=== PATIENT | male | born 1995 | race Caucasian/White ===

== ENCOUNTER 2024-10-04 08:07 | Outpatient (AMB) | payer MEDICARE, MEDICAID, SELFPAY ==
--- NOTE | 2024-10-04 08:12 | A.OFFVIS_ITS ---
Intake Visit Reasons: F/U after abnormal EEG Allergies No Known Allergies Allergy (Verified 09/29/24 07:49) HPI Comments Details: 28 yo RH man who was born in [facility]. 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 His milestones were delayed: he started talking and walking at age 1. He was schooled through special ed system and now was working in [email or web address]. He started having new symptoms around fall. These were described as episodes when he would get significantly confused from baseline and not able to continue his regular routine. He may walk back and forth. Family could talk to him but his responses were not normal. Each episode started with c/o blurred vision. Episode have lasted for hours to days, and once the episode was over, he was back to baseline and did not remember anything about the episodes. His family stated that episode was still happening including the time when he had EEG. Episodes were starting when he would complain about something wrong with his vision. [facility] Medical History (Updated 10/04/24 @ 08:21 by Jay Chand MD) Chronic static encephalopathy Seizure disorder Review of Systems Const Details: Constitutional:?No fever, chills, fatigue, weight loss, or night sweats. HEENT:?No headache, vision changes, hearing loss, nasal congestion, sore throat. Neurological:?No dizziness, syncope, seizures, numbness, tingling, weakness, tremors, memory loss. Psychiatric:?No anxiety, depression, mood swings, sleep disturbance, or hallucinations. Endocrine:?No heat/cold intolerance, polydipsia, polyuria, or hair/skin changes. Hematologic/Lymphatic:?No easy bruising, bleeding, or lymphadenopathy. Integumentary (Skin):?No rash, lesions, itching, or color changes. ? Physical Exam Neuro Other: Mental Status: Alert and oriented to person, place, and time. Normal attention. Normal spontaneous speech, fluency, and comprehension. No obvious issues with mood and memory. Affect is appropriate. Cranial Nerves: CN II: Visual marroquin full to confrontation, visual acuity intact. CN III, IV, : Pupils equal, round, reactive to light and accommodation. Extraocular movements are normal. CN V: Facial sensation is normal. CN VII: Facial movements symmetrical. CN VIII: Hearing intact to bedside conversation is normal. CN IX, X: Palate elevates symmetrically. CN XI: Shoulder shrug and head turn symmetrical. CN XII: Tongue midline without atrophy or fasciculations. Extrapyramidal: Full facial expressions and blinking. No rigidity. Movements are appropriate with no tremor or abnormality. Speech: Normal; no dysarthria or tremor. Assessment & Plan Assessment & Plan (1) Encephalopathy: Comment: 25 hr EEG at [facility] in August 2024: WNL with no buttons pressed but family said that he was had the symptoms of episode while having EEG MRI brain WO at [facility] in July 2024: OK EEG at [facility] in August 2024: OK Code(s): G93.40 - Encephalopathy, unspecified Category: Medical Qualifiers: Encephalopathy type: unspecified encephalopathy Qualified Code(s): G93.40 - Encephalopathy, unspecified Plan Impression: Probably behavioral disorder as EEG while he was having symptoms did not reveal any abnormality. Rec: a: Trial of a mood stabilizer. This was discussed with his mother and father, including its risks and benefits. b: Pyschiatry referral for management Medications: New gabapentin 300 mg PO BID 60 caps 1RF Coding Level of Care Code Est Pt Level 4 (85481) Diagnoses Encephalopathy, unspecified type G93.40 Encephalopathy type: unspecified encephalopathy
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
--- OUTSIDE RECORDS SUMMARY | 2024-10-04 08:14 | XMS_ITS ---
Author Name [facility] Organization Unknown History of Medication Use Medication Directions Dispensed Refills Start Date End Date Stat us hydrOXYzine HCL (ATARAX) 10 mg tablet Take 1 tablet (10 mg total) by mouth 1 (one) time each day if needed for itching. 05/13/2024 active multivitamin with minerals (CENTRUM/CERTAVIT) 18-400 mg-mcg tablet tablet Take by mouth. 12/09/2011 active Allergies Allergen Reaction Severity Comment Documented Date Source Statu s MILK OTHER croup 08/29/2017 [facility] active Problems Problem Status Onset Date Problem Type Date of Resoluti on Source Intellectual disability active 2017-08-29 ProblemAct [facility] Immunizations Vaccine Date Source Lot Number Status Influenza trivalent, 0.5mL, preservative free (Fluarix; FluLaval; Fluzone) ages 6mo and older (Afluria) 3 years and older 12/25/2023 [facility] [id number] completed Influenza, Unspecified 01/08/2023 [facility] Influenza Quadravalent, MDCK , 0.5ml, preservative free (Flucelvax) 6mo and older 01/22/2021 [facility] [id number] completed Influenza trivalent, with pr eservative (Fluzone; Afluria) 6mo and older 12/28/2018 [facility] [id number] completed Influenza Quadravalent, MDCK , 0.5ml, preservative free (Flucelvax) 6mo and older 12/12/2017 [facility] [id number] completed Tdap Tetanus diptheria acell ular pertussis (Boostrix; Adacel) 7yo and older 08/29/2017 [facility] [id number] completed Influenza trivalent, with pr eservative (Fluzone; Afluria) 6mo and older 02/26/2016 [facility] [id number] completed Influenza trivalent, with pr eservative (Fluzone; Afluria) 6mo and older 12/14/2014 [facility] [id number] completed HPV, Quadrivalent 01/31/2014 [facility] [id number] complet ed Influenza trivalent, with pr eservative (Fluzone; Afluria) 6mo and older 01/06/2014 [facility] [id number] completed HPV, Quadrivalent 03/26/2013 [facility] [id number] complet ed HPV, Quadrivalent 01/18/2013 [facility] [id number] complet ed Influenza trivalent, with pr eservative (Fluzone; Afluria) 6mo and older 12/03/2012 [facility] [id number] completed Hep A, Unspecified 11/18/2011 [facility] [id number] comple bakari Influenza trivalent, with pr eservative (Fluzone; Afluria) 6mo and older 11/29/2010 [facility] [id number] completed Hepatitis A Vaccine, Pediatr ic Dosage, Unspecified Formulation 2010 [facility] [id number] complete d Meningococcal Polysaccharide 2010 [facility] [id number] completed Influenza trivalent, with pr eservative (Fluzone; Afluria) 6mo and older 12/12/2009 [facility] [id number] completed Meningococcal Conjugate (Men veo) MenACWY 11yo to less than 19 yo 02/14/2009 [facility] complete d Meningococcal, Unspecified 02/14/2009 [facility] completed Influenza trivalent, with pr eservative (Fluzone; Afluria) 6mo and older 11/22/2008 [facility] completed Influenza trivalent, with pr eservative (Fluzone; Afluria) 6mo and older 01/12/2008 [facility] UN[facility] completed Varicella live (Varivax) 12mo and older 01/12/2008 [facility] UNK completed Tdap Tetanus diptheria acell ular pertussis (Boostrix; Adacel) 7yo and older 07/01/2006 [facility] [id number] completed Influenza trivalent, with pr eservative (Fluzone; Afluria) 6mo and older 03/11/2006 [facility] UNK completed Influenza trivalent, with pr eservative (Fluzone; Afluria) 6mo and older 12/26/2005 [facility] UNK completed Influenza trivalent, with pr eservative (Fluzone; Afluria) 6mo and older 12/13/2003 [facility] UNK completed Diptheria & Tetanus, 6wks to less than 7yo 11/04/2002 [facility] UNK completed DTaP (Infanrix) 6wks to less than 7yo 02/13/1998 [facility] [id number] completed IPV Inactivated polio (Ipol) 6wks and older 02/13/1998 [facility] UNK completed MMR, measles mumps and rubel la Live (Priorix; M-M-R II) 12mo and older 02/13/1998 [facility] UNK completed OPV 02/13/1998 [facility] completed Varicella live (Varivax) 12mo and older 02/13/1998 [facility] UNK completed DTP 01/14/1996 [facility] UNK completed MMR, measles mumps and rubel la Live (Priorix; M-M-R II) 12mo and older 10/12/1995 [facility] UNK completed DTP 01/13/1995 [facility] completed HiB PRP-T conjugate (Acthib, Hiberix) 6wks and older 01/13/1995 [facility] [id number] completed MMR, measles mumps and rubel la Live (Priorix; M-M-R II) 12mo and older 1994 [facility] completed Hep B, Unspecified 07/15/1994 [facility] UNK comple bakari Hepatitis B Pediatric (Enger ix B; Recombivax HB) to less than 20 yo 07/15/1994 [facility] completed IPV Inactivated polio (Ipol) 6wks and older 05/17/1994 [facility] UNK completed OPV 05/17/1994 [facility] completed DTP 04/18/1994 [facility] UNK completed HiB PRP-T conjugate (Acthib, Hiberix) 6wks and older 04/18/1994 [facility] [id number] completed IPV Inactivated polio (Ipol) 6wks and older 04/08/1994 [facility] UNK completed OPV 04/08/1994 [facility] completed IPV Inactivated polio (Ipol) 6wks and older 02/25/1994 [facility] UNK completed OPV 02/25/1994 [facility] completed Hep B, Unspecified 02/22/1994 [facility] UNK comple bakari Hepatitis B Pediatric (Enger ix B; Recombivax HB) to less than 20 yo 02/22/1994 [facility] completed HiB PRP-T conjugate (Acthib, Hiberix) 6wks and older 02/22/1994 [facility] [id number] completed DTP 02/21/1994 [facility] UNK completed Hep B, Unspecified 1993 [facility] UNK comple bakari Hepatitis B Pediatric (Enger ix B; Recombivax HB) to less than 20 yo 1993 [facility] completed HiB PRP-T conjugate (Acthib, Hiberix) 6wks and older 1993 [facility] [id number] completed DTP 1993 [facility] UNK completed Care Team Organization Name Specialty Phone Email Start Date End Da te [facility] 01/15/2022
--- OUTSIDE RECORDS SUMMARY | 2024-10-04 08:14 | XMS_ITS | Encounter Summary ---
Author Organization [facility] Address [address] [place] [address] Care Team Providers Care Power Driven Brush Maker Name Role Phone Campbell Mcdermott MD Primary Care Provider Un available Thien Lockhart MD Primary Care Provider [phone] Sonali Whittington MD Primary Care Provider [phone] Reason for Referral * EXTERNAL (Routine) - Authorized/Booked Specialty Diagnoses / Procedures Referred By Peterson valenzuela Referred To Contact PSYCHIATRY / Neuropsych testing Procedures REFERRAL TO NEUROPSYCH TESTING Campbell Mcdermott MD [address] [place] [phone] Testing, [facility] [address] [place] [address] Referral ID Status Reason Start Date Expiration Date V isits Requested Visits Authorized SEE REVIEW 02/19/2018 Authorized/ Booked 02/19/2018 05/20/2018 1 1 Encounter Details Date Type Department Care Team Description 02/19/2018 Orders Only Adult Medicine [facility] [address] [place] [phone] Campbell Mcdermott MD Social History Tobacco Use Types Packs/Day Years Used Date Smoking Tobacco: Never Smokeless Tobacco: Never Alcohol Use Standard Drinks/Week Comments No 0 (1 standard drink = 0.6 oz pur e alcohol) Sex Assigned at Date Recorded Not on file documented as of this encounter Plan of Treatment Not on file documented as of this encounter Visit Diagnoses Not on filedocumented in this encounter Care Teams Power Driven Brush Maker Relationship Specialty Start Date End Date Campbell Mcdermott MD PCP - General Internal Medicine 10/10/17 Thien Lockhart MD [address] [place] [phone] PCP - General Internal Medicine 10/08/18 01/29/22 Sonali Whittington MD [address] [place] [phone] PCP - General Internal Medicine 01/30/22 documented as of this encounter
== END 2024-10-04 08:32 | disposition home or self-care (01) ==
LOC: HO.HSM 08:07
PROVIDERS: PCP Internal Medicine; Visit Provider Psychiatry & Neurology Neurology
DX: G93.40 Encephalopathy, unspecified (principal)
CPT/HCPCS: 99214

== ENCOUNTER → 2024-10-04 08:07 | Outpatient (BNVA) | payer MEDICARE, MEDICAID, SELFPAY | PROVIDERS: PCP Internal Medicine; Visit Provider Psychiatry & Neurology Neurology | DX: G93.40 Encephalopathy, unspecified (principal) | CPT/HCPCS: 99212 ==

== ENCOUNTER 2024-11-22 13:03 | Outpatient (AMB) | payer MEDICARE, MEDICAID, SELFPAY ==
--- NOTE | 2024-11-22 13:34 | MHC.OFFVIS ---
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 His milestones were delayed: he started talking and walking at age 1. He was schooled through special ed system and now was working in [employer]. He started having new symptoms around fall. These were described as episodes when he would get significantly confused from baseline and not able to continue his regular routine. He may walk back and forth. Family could talk to him but his responses were not normal. Each episode started with c/o blurred vision. Episode have lasted for hours to days, and once the episode was over, he was back to baseline and did not remember anything about the episodes. EEG at [facility] was normal while he had symptoms). He is presenting with a behavioral disorder that has been persistent for over a year. Episodes occur every two weeks, and treatment with a medication referred to as QRA has not led to improvement. There is a concomitant concern for job security due to the condition?s impact on work attendance. Epilepsy is considered a possibility though not confirmed; the patient had been using gabapentin without sufficient results, leading to its discontinuation and replacement with an alternative regimen to be taken at bedtime. Throughout the course of his condition, emotional impact has been significant, contributing further to the gravity of his circumstances. 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 We discussed starting a new medication to be taken at bedtime. Additionally, a psychiatric referral was made, given the focus on mental health management which falls outside my specialty. The possibility of epilepsy was addressed but remains unconfirmed. We also discussed the implications of these conditions on the patient's employment and emotional well-being, stressing the importance of specialty consultation. 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
--- OUTSIDE RECORDS SUMMARY | 2024-11-22 18:08 | XMS_ITS | Clinical Summary ---
Author Organization [address] [facility] Address [address] [place] [address] Phone Care Team Providers Care Sheet Rock Nailer Name Role Phone Sonali Whittington MD Primary Care Provider [phone] Allergies Active Allergy Reactions Criticality Noted Date Comments Milk Other 08/29/2017 croup Medications multivitamin with minerals (CENTRUM/CERTAVI T) 18-400 mg-mcg tablet tablet Take by mouth. 12/09/2011 Active Active Problems Problem Noted Date Diagnosed Date Intellectual disability 08/29/2017 Overview (02/14/2024): Carlos was born at 6months gestational age. Day programs: [facility] [address] [facility] [address] [facility] Encounters Date Type Department Care Team Description 10/06/2024 Telephone Adult Medicine [address] [phone] Sonali Whittington MD 09/17/2024 Telephone Adult Medicine [address] [phone] Sonali Whittington MD 09/15/2024 Telephone Adult Medicine [address] [phone] Casandra Bansal MA from Last 3 Months Immunizations Name Administration Dates Next Due DTP 01/14/1996, 5,04/18/1994,02/21,1993 DTaP (Infanrix) 6wks to less than 7yo 02/13/1998 Diptheria & Tetanus, 6wks to less than 7yo 11/04/2002 HPV, Quadrivalent 01/31/2014,03/26/2013,01/19/20 13 Hep A, Unspecified 11/18/2011 Hep B, Unspecified 07/15/1994,02/22/1994, 994 Hepatitis A Vaccine, Pediatr ic Dosage, Unspecified Formulation 2010 Hepatitis B Pediatric (Enger ix B; Recombivax HB) to less than 20 yo 07/15/1994,02/22/1994,1993 HiB PRP-T conjugate (Acthib, Hiberix) 6wks and older 01/13/1995,04/18/1994,02/22/1994,12/21 IPV Inactivated polio (Ipol) 6wks and older 02/13/1998,05/17/1994,04/08/1994,02/25 Influenza Quadravalent, MDCK , 0.5ml, preservative free (Flucelvax) 6mo and older 01/22/2021,12/12/2017 Influenza trivalent, 0.5mL, preservative free (Fluarix; FluLaval; Fluzone) ages 6mo and older (Afluria) 3 years and older 12/25/2023 Influenza trivalent, with pr eservative (Fluzone; Afluria) 6mo and older 12/28/2018,02/26/2016,12/14/2014,01/06,12/03/2012,11/29/2010,12/12/2009 ,11/22/2008,01/12/2008,03/11/2006,12/08,12/13/2003 Influenza, Unspecified 01/08/2023 MMR, measles mumps and rubel la Live (Priorix; M-M-R II) 12mo and older 02/13/1998,10/12/1995,1994 Meningococcal Conjugate (Men veo) MenACWY 11yo to less than 19 yo 02/14/2009 Meningococcal Polysaccharide 2010 Meningococcal, Unspecified 02/14/2009 OPV 02/13/1998, 5,04/08/1994,02/25 Tdap Tetanus diptheria acell ular pertussis (Boostrix; Adacel) 7yo and older 08/29/2017,07/01/2006 Varicella live (Varivax) 12m o and older 01/12/2008,02/13/1998 Surgical History Surgery Date Site/Laterality Comments OTHER SURGICAL HISTORY PROCEDURE: ---- OTHER ----; COMMENT: multiple surgeries to correct defects during first 4 months of live Medical History Medical History Date Comments Intellectual disability 08/29/2017 DX:Intel lectual disability; COMMENT: [facility] [address] [facility] [address] [facility] Family History Medical History Relation Name Comments No Known Problems Brother No Known Problems Father Other: Hyperlipidemia Maternal Grandmother Hyperlipidemia Mother Relation Name Status Comments Brother Alive Father Alive Maternal Grandfather Maternal Grandmother Mother Alive Paternal Grandfather Paternal Grandmother Social History Tobacco Use Types Packs/Day Years Used Date Smoking Tobacco: Never Smokeless Tobacco: Never Tobacco Cessation:Counseling Given: Not Answered Alcohol Use Standard Drinks/Week Comments No 0 [...] care for your loved ones. For example, childhood development teacher or elderly care for an older adult? [...] Orientation Straight 04/12/2024 3: 38 PM EST Obstetrics History Last Filed Vital Signs Vital Sign Reading Time Taken Comments Blood Pressure 104/74 08/17/2024 2:20 PM EDT Pulse 76 08/17/2024 2:20 PM EDT Temperature 36.6 C (97.8 F) 08/17/2024 2:20 PM EDT Respiratory Rate 14 08/17/2024 2:20 PM EDT Oxygen Saturation 98% 08/17/2024 2:20 PM EDT Inhaled Oxygen Concentration - - Weight 80.7 kg (178 lb) 08/17/2024 2:20 PM EDT Height 162.6 cm (5' 4 ) 08/17/2024 2:20 PM EDT Body Mass Index 30.55 08/17/2024 2:20 PM EDT Plan of Treatment Health Maintenance Due Date Last Done Comments HIV Screening 10/07/2023 Hepatitis C Screening 10/07/2023 Medicare Annual Wellness Visit 10/07/2023 COVID-19 Vaccine (3 season) 2024 07/06/2020, 06/08/2020 Influenza Vaccine (#1) 2024 , 01/08/2023, 01/04/2023, Additional history exists Social Influencers of Health Screening 05/13/2025 05/13/2024 DTaP,Tdap,and Td Vaccines (8 - Td or Tdap) 08/30/2027 08/29/2017, 07/01/2006, 11/04/2002, Additional history exists Cholesterol Screening (Lipid Panel) 05/14/2029 05/14/2024, 04/16/2023 Hepatitis B Vaccines Completed 07/15/1994, 07/15/1994, 02/22/1994, Additional history exists HIB Vaccines Completed 01/13/1995, 11/1994, 02/22/1994, Additional history exists IPV Vaccines Completed 02/13/1998, 09/1997, 05/17/1994, Additional history exists MMR Vaccines Completed 02/13/1998, 06/1995, 1994 Varicella Vaccines Completed 01/12/2008, 02/13/1998 Meningococcal ACWY Vaccine Aged Out 10/11, 02/14/2009, 02/14/2009 No longer eligible based on patient's age to complete this topic Hepatitis A Vaccines Completed 11/18/2011, 10/12/19 11 HPV Vaccines Completed 01/31/2014, 03/10, 01/18/2013 Depression Screening Completed 08/10/2024, 04/16/19 24 Meningococcal B Vaccine Aged Out No l onger eligible based on patient's age to complete this topic Pneumococcal Vaccine: Pediatrics (0 to 5 Years) and At-Risk Patients (6 to 49 Years) Aged Out No longer eligible based on patient's age to complete this topic RSV Immunization Patients Under 20 months Aged Out No longer eligible based on patient's age to complete this topic Procedures Procedure Name Priority Date/Time Associated Diagnosis Comments LIPID PANEL WITH REFLEX TO DIRECT LDL Routine 05/14/2024 1:21 PM EST PE (physical exam), annual HM DEPRESSION SCREENING Routine 04/16/2023 from Last 3 Months or Most Recently Relevant to Health Maintenance Results * Lipid panel with reflex to direct LDL (05/14/2024 1:21 PM EST) Cholesterol 153 0 - 200 mg/dL LAB CHEMISTRY METHOD 05/14/2024 7:02 PM EST [facility] Triglycerides 140 0 - 150 mg/dL LAB CHEMISTRY METHOD 05/14/2024 7:02 PM EST [facility] HDL 53 >=40 mg/dL LAB CHEMISTRY METHOD 05/14/2024 7:[address] [facility] LDL Calculated 72 0 - 100 mg/dL LAB CHEMISTRY METHOD 05/14/2024 7:[address] [facility] VLDL Cholesterol Richi 28 mg/dL LAB CHEMISTRY METHOD 05/14/2024 7:[address] [facility] Non HDL Chol. (LDL+VLDL) 100 <145 mg/dL LAB CHEMISTRY METHOD 05/14/2024 7:02 PM EST [facility] Chol/HDL Ratio 2.9 0.0 - 4.4 LAB CHEMISTRY METHOD 05/14/2024 7:[address] [facility] Blood Venous blood specimen / Unknown Venipuncture / Unknown 05/14/2024 1:21 PM EST 05/14/2024 1:21 PM EST Sonali Whittington MD LAB BLOOD ORDERABLES Final Resul t [facility] [address] [place] [address], [place] [phone] * Depression Screening (04/16/2023) Pathologist [facility] Depression Screening abstracted James Provider HEALTH MAINTENANCE Final Result from Last 3 Months or Most Recently Relevant to Health Maintenance Insurance MEDICARE [place]ICAID - [place] Care Teams Sheet Rock Nailer Relationship Specialty Start Date End Date Sonali Whittington MD [address] [place] [phone] PCP - General Internal Medicine 05/06/24
== END 2024-11-22 13:45 | disposition home or self-care (01) ==
LOC: HO.HSM 13:04
PROVIDERS: PCP Internal Medicine; Visit Provider Psychiatry & Neurology Neurology
DX: F07.9 Unspecified personality and behavioral disorder due to known physiological condition (principal)
CPT/HCPCS: 99214

== ENCOUNTER → 2024-11-22 13:03 | Outpatient (BNVA) | payer MEDICARE, MEDICAID, SELFPAY | PROVIDERS: PCP Internal Medicine; Visit Provider Psychiatry & Neurology Neurology | DX: F07.9 Unspecified personality and behavioral disorder due to known physiological condition (principal); R41.82 Altered mental status, unspecified; H53.8 Other visual disturbances | CPT/HCPCS: 99212 ==

== ENCOUNTER 2025-02-21 13:28 | Outpatient (AMB) | payer MEDICARE, MEDICAID, SELFPAY ==
--- NOTE | 2025-02-21 13:37 | MHC.OFFVIS ---
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 His milestones were delayed: he started talking and walking at age 1. He was schooled through special ed system and now was working in [place]. He started having new symptoms around fall. These were described as episodes when he would get significantly confused from baseline and not able to continue his regular routine. He may walk back and forth. Family could talk to him but his responses were not normal. Each episode started with c/o blurred vision. Episode have lasted for hours to days, and once the episode was over, he was back to baseline and did not remember anything about the episodes. EEG at [facility] was normal while he had symptoms). He is presenting for a follow-up visit for management of seizure disorder. He has been taking an unspecified medication, 250 mg once daily at night, which was effective for one month, after which he experienced two short breakthrough episodes. Previously, his episodes would last for a full day. The patient reports the medication causes some tiredness and helps him sleep. His sleep quality has improved significantly; prior to the medication, he would wake up multiple times during the night, but now sleeps for at least five hours straight. He is back to work and is reportedly doing much better overall. A referral to a psychiatrist had been considered, and the patient is on a waiting list. [facility] Medical History (Updated 11/22/24 @ 13:38 by Jay Chand MD) Chronic static encephalopathy Seizure disorder Review of Systems Narrative - Neurological: Reports two recent, short seizure-like episodes after a month of being symptom-free. - Constitutional: Reports tiredness after taking his nightly medication. - Sleep: Reports improved sleep quality, now sleeping for at least five hours consecutively, which is an improvement from his previous pattern of frequent nightly awakenings. Physical Exam Neuro Other: Mental Status: Alert and oriented to person, place, and time. Normal attention. Normal spontaneous speech, fluency, and comprehension. Cranial Nerves: CN II: Visual marroquin full to confrontation, visual acuity intact. CN III, IV, : Pupils equal, round, reactive to light and accommodation. Extraocular movements are normal. CN V: Facial sensation is normal. CN VII: Facial movements symmetrical. CN VIII: Hearing intact to bedside conversation is normal. CN IX, X: Palate elevates symmetrically. CN XI: Shoulder shrug and head turn symmetrical. CN XII: Tongue midline without atrophy or fasciculations. Extrapyramidal: Full facial expressions and blinking. No rigidity. Movements are appropriate with no tremor or abnormality. Speech: Normal; no dysarthria or tremor. 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 I explained that his current medication dose of 250 mg is quite low and can be increased significantly if needed. To address the breakthrough episodes, I will increase the dose to 500 mg to be taken at night, which should also help with his sleep. I advised them that he may notice some changes for the first few days as he adjusts to the higher dose. Regarding the referral to psychiatry, I reassured them that a separate consultation is not necessary at this time as I will continue to manage his care. We will have a follow-up visit in six months. 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
--- OUTSIDE RECORDS SUMMARY | 2025-02-21 19:38 | XMS_ITS | Clinical Summary ---
Author Organization [address] [place] [address] Address [address] [place] [address] Phone Care Team Providers Care Silverware Buffer Name Role Phone Sonali Whittington MD Primary Care Provider Allergies Active Allergy Reactions Criticality Noted Date Comments Milk Other 08/29/2017 croup Medications multivitamin with minerals (CENTRUM/CERTAV IT) 18-400 mg-mcg tablet tablet Take by mouth. 2 Active divalproex (DEPAKOTE) [address] tablet Take 1 tablet (250 mg total) by mouth. 5 Active gabapentin (NEURONTIN) 300 mg capsule Take 1 capsule (300 mg total) by mouth 2 (two) times a day. 5 01/29/20 25 Discontinu ed(Therapy completed) Active Problems Problem Noted Date Diagnosed Date Personality and behavioral d isorder due to known physiological condition 01/28/2025 Intellectual disability 08/29/2017 Overview (02/14/2024): Carlos was born at 6months gestational age. 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 For example, child care associate teacher or elderly care for an older [...] Date Recorded What is your living situation? Unrecognized valu e 05/13/2024 Sex and Gender Information Value Date Recorded Sex Assigned at Male 04/12/2024 3:38 PM EST Legal Sex Male 10:15 PM EST Gender Identity Male 04/12/2024 3:38 PM EST Sexual Orientation Straight 04/12/2024 3: 38 PM EST Last Filed Vital Signs Vital Sign Reading Time Taken Comments Blood Pressure 124/76 01/28/2025 2:53 PM EST Pulse 76 01/28/2025 2:53 PM EST Temperature 36.4 C (97.5 F) 01/28/2025 2:53 PM EST Respiratory Rate 14 01/28/2025 2:53 PM EST Oxygen Saturation 98% 01/28/2025 2:53 PM EST Inhaled Oxygen Concentration - - Weight 83.5 kg (184 lb) 01/28/2025 2:53 PM EST Height 165.1 cm (5' 5 ) 01/28/2025 2:53 PM EST Body Mass Index 30.62 01/28/2025 2:53 PM EST Plan of Treatment Health Maintenance Due Date Last Done Comments HIV Screening 10/07/2023 Hepatitis C Screening 10/07/2023 Medicare Annual Wellness Visit 10/07/2023 COVID-19 Vaccine ( season) 2024 07/06/2020, 06/08/2020 Social Influencers of Health Screening 05/13/2025 05/13/2024 DTaP,Tdap,and Td Vaccines (8 - Td or Tdap) 08/30/2027 08/29/2017, 07/01/2006, 11/04/2002, Additional history exists Cholesterol Screening (Lipid Panel) 05/14/2029 05/14/2024, 04/16/2023 RSV Immunization Adult Patients (1 - 1-dose 75+ series) 2068 Hepatitis B Vaccines Completed 07/15/1994, 07/15/1994, 02/22/1994, [...] 01/18/2013 Depression Screening Completed 08/10/2024, 04/16/19 24 Influenza Vaccine Completed 01/13/2025, , 01/08/2023, Additional history exists Meningococcal B Vaccine Aged Out No l [...] 1:21 PM EST PE (physical exam), annual DEPRESSION SCREENING Routine 04/16/2023 from Last 3 Months or Most Recently Relevant to Health Maintenance Results * Lipid panel with reflex to direct LDL (05/14/2024 1:21 PM EST) Cholesterol 153 0 - 200 mg/dL LAB CHEMISTRY METHOD 05/14/2024 7:02 PM EST [facility] Triglycerides 140 0 - 150 mg/dL LAB CHEMISTRY METHOD 05/14/2024 7:02 PM [facility] HDL 53 >=40 mg/dL LAB CHEMISTRY METHOD 05/14/2024 7:02 PM [facility] LDL Calculated 72 0 - 100 mg/dL LAB CHEMISTRY METHOD 05/14/2024 7:02 PM EST [facility] VLDL Cholesterol Richi 28 mg/dL LAB CHEMISTRY METHOD 05/14/2024 7:02 PM [facility] Non HDL Chol. (LDL+VLDL) 100 <145 mg/dL LAB CHEMISTRY METHOD 05/14/2024 7:02 PM [facility] Chol/HDL Ratio 2.9 0.0 - 4.4 LAB CHEMISTRY METHOD 05/14/2024 7:02 PM [facility] Blood Venous blood specimen / Unknown Venipuncture / Unknown 05/14/2024 1:21 PM EST 05/14/2024 1:21 PM EST us Sonali Whittington MD LAB BLOOD ORDERABLES Final Resul t [facility] [address] [place] [address], [place] [phone] * Depression Screening (04/16/2023) [facility] Depression Screening abstracted us Historical Provider HEALTH MAINTENANCE Final Result from Last 3 Months or Most Recently Relevant to Health Maintenance Insurance MEDICARE [place]ICAID - [place] Care Teams Silverware Buffer Relationship Specialty Start Date End Date Sonali Whittington MD [address] [place] [phone] PCP - General Internal Medicine 05/06/24
== END 2025-02-21 14:11 | disposition home or self-care (01) ==
LOC: HO.HSM 13:29
PROVIDERS: PCP Internal Medicine; Visit Provider Psychiatry & Neurology Neurology
DX: G93.40 Encephalopathy, unspecified (principal); F07.9 Unspecified personality and behavioral disorder due to known physiological condition
CPT/HCPCS: 99213

== ENCOUNTER → 2025-02-21 13:28 | Outpatient (BNVA) | payer MEDICARE, MEDICAID, SELFPAY | PROVIDERS: PCP Internal Medicine; Visit Provider Psychiatry & Neurology Neurology | DX: G93.40 Encephalopathy, unspecified (principal); F07.9 Unspecified personality and behavioral disorder due to known physiological condition | CPT/HCPCS: 99212 ==